=== PATIENT | male | born 1980 | race Caucasian/White ===

== ENCOUNTER 2016-12-20 15:58 | Inpatient (IN) | payer BC, OTHER ==
[~2016-12-20] VITALS: Ht 172.7 cm; Wt 86.2 kg
[2016-12-20] MEDS ORDERED: ACETAMINOPHEN 325 MG TABLET PO PRN (22:45)
[2016-12-20] MEDS ORDERED: DICYCLOMINE HCL 20 MG TABLET PO PRN (22:45)
[2016-12-20] MEDS ORDERED: MIRALAX 17 GM POWD.PACK PO PRN (22:45)
[2016-12-20] MEDS ORDERED: LORAZEPAM 2 MG/1 ML VIAL IM PRN (22:45)
[2016-12-20] MEDS ORDERED: LORAZEPAM 1 MG TABLET PO PRN ×2 (22:45)
[2016-12-20] MEDS ORDERED: MAGNESIUM HYDROXIDE 30 ML LIQUID UDC PO PRN (22:45)
[2016-12-20] MEDS ORDERED: THIAMINE HCL 200 MG/2 ML VIAL IM ONE (22:45)
[2016-12-20] MEDS ORDERED: ONDANSETRON 4 MG/2 ML VIAL IM PRN (22:45)
[2016-12-20] MEDS ORDERED: ONDANSETRON ODT 4 MG TAB.RAPDIS SL PRN (22:45)
[2016-12-20] MEDS ORDERED: MAG HYDROX/AL HYDROX/SIMETH 30 ML LIQUID UDC PO PRN (22:45)
[2016-12-20] MEDS ORDERED: IBUPROFEN 400 MG TABLET PO PRN (22:45)
[2016-12-20] MEDS ORDERED: LOPERAMIDE HCL 2 MG CAPSULE PO PRN ×2 (22:45)
--- NOTE | 2016-12-20 23:10 | NUR ---
Intake Assessment Assessment done at intake office. Patient is alert & oriented x4. Pt is ambulatory with a steady gait. Speech is clear and audible. Pt appears anxious and is cooperative during interviews. Vitals noted B/P 172/110, NE 118, RR 18, Temp 97.9, O2Sat 96%. Pt is here for Alcohol. Pt reported having white coat syndrome and gets anxious when he is in hospitals. Pt denies taking any home medication or hypertensive medication. No seizure history noted. Denies any chest pain at this time. No s/s of distress noted. Respiration even & unlabored. Pt denies any food and drug allergies. Explained to pt unit protocols. Pt verbalized understanding.
[2016-12-20 23:30] LABS: BASOPHILS % (AUTO) 0.5 % (0.0-2.0); EOSINOPHILS # (AUTO) 0.1 K/uL (0.0-0.7); EOSINOPHILS % (AUTO) 0.9 % (0.0-7.0); HEMATOCRIT 48.1 % (40-50); HEMOGLOBIN 16.2 G/DL (14.0-18.0); LYMPHOCYTES # (AUTO) 1.3 K/UL (0.8-4.8); LYMPHOCYTES % (AUTO) 20.9 % (20.5-51.5); MEAN CORPUSCULAR HEMOGLOBIN 32.3 UUG (27.0-31.0); MEAN CORPUSCULAR HGB CONC 34 g/dL (32.0-37.0); MEAN CORPUSCULAR VOLUME 95.8 FL (82.0-92.0); MONOCYTES # (AUTO) 0.4 K/UL (0.1-1.30); MONOCYTES % (AUTO) 6.2 % (0.0-11.0); NEUTROPHILS # (AUTO) 4.3 K/UL (1.8-8.9); NEUTROPHILS % (AUTO) 71.5 % (38.5-71.5); PLATELET COUNT (AUTO) 285 K/UL (150-450); RED BLOOD CELL COUNT(AUTO) 5.02 MIL/UL (4.7-6.1); WHITE BLOOD COUNT (AUTO) 6.1 K/UL (4.0-11.2)
--- NOTE | 2016-12-20 23:30 | NUR ---
ADMISSION NOTE: Patient is a 36 y.o male admitted at [facility] at approximately 2320pm of 12/20/16 for medically supervised withdrawal from ETOH. Body search done and skin check performed in Room 302, no contraband found. Rashes noted all over his back. Pictures taken and placed in chart. Pt is 5'8" tall and weighs 190 lbs in a standing scale. Pt is cooperative during assessment. Patient is oriented to floor unit and room. Patient follows a regular diet at home with no known food and drug allergies. Pt wishes to be full Code. Patient is alert & oriented x4, ambulatory with a steady gait. Speech is clear and audible. Patient appears anxious but cooperative during interview. No shortness of breath noted. Respiration even & unlabored. Abdomen soft & non-distended. Bowel sounds active in all four quadrants. No nausea/vomiting noted. No complaints of pain/discomfort noted. No hand tremors noted. Pt denies any chest pain. No hallucinations noted. CIWA 3 noted. Patient noted with past medical history of Anxiety, Depression, Pyloric Stenosis(1980), & White Coat Syndrome. Pt denies any thoughts of suicide in the past. Pt currently denies SI/HI. Pt was able to provide urine sample for drug screen upon admission and is voiding clear yellow urine with no problems. Substance use: 1. ETOH- Pt started drinking when he was 17 years old. Pt drinks 2 bottles of wine daily for 5 years. Last drink was 4 hours prior to admission. Pt drank 2 beers and 2 glasses of wine. Patient has no treatment history. Patient denies being hospitalized in the last 30 days. Patient reports his longest period of sobriety was for 2 weeks in 2013 Patient reports symptoms when he does not use insomnia, sweating, chills, anxiety, tremors, nausea, loss of appetite, & headache. Patient is never a smoker. Patient agreed to receive a pneumonia vaccine. Patient's PCP is Dr. Xavier Lee. Urine drug screen came back negative. Alcohol level is 0.27. Fall & Seizure precautions are in place. All needs attended & met. Safety precautions are in place. Bed locked in lowest position. Both side rails padded & up. Call light within pt's reach. Will continue to monitor patient.
[2016-12-20 23:48] LABS: BILIRUBIN,TOTAL 0.3 mg/dL (0.2-1.0); CREATININE 0.9 mg/dL (0.6-1.3); POTASSIUM 3.3 mmol/L (3.5-5.1); TOTAL PROTEIN, SERUM 8.9 g/dL (6.4-8.2)
[2016-12-20] MEDS: diphenhydrAMINE 50 MG CAPSULE PO PRN (23:51)
--- NOTE | 2016-12-20 23:51 | NUR ---
PRN Benadryl Patient requested medication to help him sleep. PRN Benadryl administered as ordered. Will continue to monitor patient.
[2016-12-20 23:53] LABS: *AMPHETAMINE, URINE NEGATIVE (NEGATIVE); *BARBITURATE, URINE NEGATIVE (NEGATIVE); *CANNABINOID, URINE NEGATIVE (NEGATIVE); *COCCAINE, URINE NEGATIVE (NEGATIVE); *OPIATE, URINE NEGATIVE (NEGATIVE); *PHENCYCLIDINE SCREEN,URINE NEGATIVE (NEGATIVE)
[2016-12-20 23:58] LABS: THYROID STIMULATING HORMONE 1.49 mIU/mL (0.358-3.740)
[2016-12-20] MEDS ORDERED: THIAMINE HCL 200 MG/2 ML VIAL ONE (23:58)
[2016-12-20] MEDS ORDERED: diphenhydrAMINE 50 MG CAPSULE ONE (23:58)
[2016-12-21] MEDS ORDERED: POTASSIUM CHLORIDE 20 MEQ TAB.PRT.SR PO ONE (00:30)
[2016-12-21] MEDS: CLONIDINE HCL 0.1 MG TABLET PO PRN ×2 (00:32→12:40)
--- NOTE | 2016-12-21 00:32 | NUR ---
PRN Clonidine Patient noted with a BP 138/107, HR 110, O2Sat 97%, RR 20, Temp 98.6. Patient complains of anxiety and denies any pain/discomfort. PRN Clonidine administered as ordered. Will continue to monitor patient.
[2016-12-21] MEDS ORDERED: CLONIDINE HCL 0.1 MG TABLET ONE (00:38)
[2016-12-21] MEDS ORDERED: POTASSIUM CHLORIDE 20 MEQ TAB.PRT.SR ONE (00:43)
[2016-12-21] MEDS ORDERED: PHEN1SUP42 RC (01:37)
[2016-12-21] MEDS ORDERED: TRIA80OI TP (01:37)
[2016-12-21] MEDS ORDERED: [UNRECOGNIZED DRUG - CODE] PO (01:37)
[2016-12-21] MEDS ORDERED: MELA3TAB PO (01:37)
[2016-12-21] MEDS ORDERED: D-ME-96 PO (01:37)
[2016-12-21] MEDS ORDERED: SIMETHICONE (01:37)
[2016-12-21] MEDS ORDERED: [UNRECOGNIZED DRUG - OTHER] (01:37)
[2016-12-21 04:00] VITALS: BP 137/91
--- NOTE | 2016-12-21 07:31 | NUR ---
End of Shift Note: Patient is a 36 y/o male admitted last night at 2320 of 12/20/16 for ETOH dependence. Patient has medical history of Anxiety, Depression, Pyloric Stenosis(1980), & White Coat Syndrome. No seizure history noted. Patient is on a regular diet with no known food and drug allergies. Full Code status. Initial CIWA is 3. Pt was given PRN Benadryl and Clonidine and were effective. Patient remained stable and vitals WNL. Pt still asleep at this time with no s/s of distress noted. Pt was able to sleep for a total of 5 hours. Consumed 1500 ml of fluids. Voided 1x with no bowel movement. All needs attended met. Safety measures in place. Will endorse pt to day shift nurse.
--- NOTE | 2016-12-21 07:59 | NUR ---
START OF SHIFT Rcvd endorsement from ongoing nurse, client is a 36 y/o admitted for alcohol withdrawal, this is his first detox treatment, he is placed on 5 day Ativan taper to start @ 0900, last CIWA 3 @ 2400. PRN Benadryl for inability to sleep, Clonidine for increased BP, noted effective, client slept 5 hrs. Client is in bed, a/o x4. he presents with depressed mood, he stated "I feel very really bad, sweating, chills, my legs hurt." Client appears irritable, skin warm and moist to touch, abdomen soft, nontender, quadrant x 4 active. Encourage client to increase fluid intake to facilitate detox and to attend group therapy for skills to maintain sobriety. Denied history of withdrawal induced seizures. Client is on seizure precautions. NKA, full code, regular diet. Call light within reach. Side rails x 2 up/padded. Will continue to monitor.
[2016-12-21] MEDS: LORAZEPAM 1 MG TABLET PO SCH ×4 (08:20→20:54)
[2016-12-21] MEDS: THIAMINE HCL 100 MG TABLET PO SCH (08:20)
[2016-12-21] MEDS: FOLIC ACID 1 MG TABLET PO SCH (08:20)
[2016-12-21] MEDS: MULTIVITAMINS,THERAPEUTIC TABLET PO SCH (08:20)
--- NOTE | 2016-12-21 08:20 | NUR ---
TB test administered to L F/A, client tolerated well.
[2016-12-21 08:53] VITALS: BP 152/102
[2016-12-21] MEDS ORDERED: TUBERCULIN,PURIF.PROT.DERIV. 5 TU/0.1 ML TEST ID ONE (09:00)
--- NOTE | 2016-12-21 12:40 | NUR ---
PRN Clonidine 0.1mg Client presents with anxious mood, manifested by increased BP 145/101 Clonidine 0.1mg PO administered, will continue to monitor.
[2016-12-21 12:55] VITALS: BP 145/101
--- NOTE | 2016-12-21 13:40 | NUR ---
Reassessment PRN Clonidine 0.1mg Client appears less anxious, BP 135/90 Clonidine 0.1mg effective. will continue to monitor.
[2016-12-21 16:00] VITALS: BP 126/86
--- NOTE | 2016-12-21 18:27 | NUR ---
END OF SHIFT Will endorse client to incoming nurse, client is in bed, a/o x 4, depressed mood, flat affect, flushed face, moist skin, fine tremors, lost of appetite, increased BP, and fatigue are some of withdrawal symptoms experienced by the client and managed with Ativan taper (first of 5 day), tolerating well, last COWS 8 @ 1600. Client is fully ambulatory. PRN Clonidine 0.1mg for BP 145/101, effective 135/90. Client was not compliant intake 2130mL, void x 3. Call light within reach. Safety measures rendered and all needs met.
--- NOTE | 2016-12-21 19:15 | NUR ---
Start of Shift Note: Patient is a 36 y/o male admitted last night at 2320 of 12/20/16 for ETOH dependence. Patient has medical history of Anxiety, Depression, Pyloric Stenosis(1980), & White Coat Syndrome. No seizure history noted. Patient is on a regular diet with no known food and drug allergies. Full Code status. Patient started on a 5-day Ativan taper and tolerating well. Last CIWA is 8. Pt was given PRN Clonidine during day shift. Patient is alert & oriented x4. No shortness of breath noted. Respiration even & unlabored. Abdomen soft & non-distended. No nausea/vomiting noted. Patient denies pain/discomfort. Patient complains of anxiety. No hallucinations noted. Safety precautions are in place. Bed locked in lowest position. Both side rails up. Call light within pts reach. Will continue to monitor patient.
[2016-12-21 20:00] VITALS: BP 131/93
[2016-12-21] MEDS: diphenhydrAMINE 50 MG CAPSULE PO PRN (20:54)
--- NOTE | 2016-12-21 20:54 | NUR ---
PRN Benadryl Patient requested medication for sleep. PRN Benadryl administered as ordered. Will continue to monitor patient.
--- NOTE | 2016-12-21 22:00 | NUR ---
PRN Reassessment Patient asleep in bed and appears comfortable. No s/s of distress noted. Safety measures in place. Will continue to monitor patient.
[2016-12-22] VITALS: BP 142/96
[2016-12-22 04:00] VITALS: BP 135/93
--- NOTE | 2016-12-22 06:48 | NUR ---
End of Shift Note: Patient had an uneventful night. Pt continues on his Ativan taper and tolerating well. Pt reported taper medication is effective in controlling his withdrawal symptoms. Last CIWA is 4. PRN Benadryl given to patient for sleep. Pt remained stable and vitals remains WNL. Pt remains compliant with medications and treatment plan. Pt still asleep at this time with no s/s of distress noted. Pt was able to sleep for a total of 6 hours. Consumed 1000 ml of fluids. Voided 3x with 1x bowel movement. All needs attended met. Safety measures in place. Will endorse pt to day shift nurse.
--- NOTE | 2016-12-22 07:30 | NUR ---
START OF SHIFT Rcvd endorsement from ongoing nurse, 36 y/o admitted for alcohol withdrawal, he is on 5 day Ativan taper (2nd day) with no ASE, last CIWA 4 @ 2400. PRN Benadryl for inability to sleep, noted effective, client slept 6 hrs. Client is in bed, a/o x4. he presents with anxious mood, flat affect, he stated "I had the worst night, I had nightmares and they were too real." Client noted with fine tremors, diaphoretic, flushed face, he reports stomach cramps, lost of appetite and fatigue. Abdomen soft, nontender, quadrant x 4 active. Encourage client to increase fluid intake to facilitate detox and to attend group therapy for skills to maintain sobriety. Denied history of withdrawal induced seizures. Client is on seizure precautions. NKA, full code, regular diet. Call light within reach. Side rails x 2 up/padded. Will continue to monitor.
[2016-12-22] MEDS: THIAMINE HCL 100 MG TABLET PO SCH (08:12)
[2016-12-22] MEDS: MULTIVITAMINS,THERAPEUTIC TABLET PO SCH (08:12)
[2016-12-22] MEDS: CLONIDINE HCL 0.1 MG TABLET PO PRN (08:12)
[2016-12-22] MEDS: FOLIC ACID 1 MG TABLET PO SCH (08:12)
[2016-12-22] MEDS: LORAZEPAM 1 MG TABLET PO SCH ×3 (08:12→21:14)
--- NOTE | 2016-12-22 08:12 | NUR ---
PRN Clonidine 0.1mg Client with increased BP 139/107 Clonidine 0.1mg PO administered, will continue to monitor. Call light within reach.
[2016-12-22 08:15] VITALS: BP 139/107
[2016-12-22 09:03] LABS: BILIRUBIN,DIRECT 0.2 mg/dL (0.0-0.2); BILIRUBIN,TOTAL 0.6 mg/dL (0.2-1.0); CREATININE 0.8 mg/dL (0.6-1.3); POTASSIUM 3.9 mmol/L (3.5-5.1); TOTAL PROTEIN, SERUM 6.9 g/dL (6.4-8.2)
--- NOTE | 2016-12-22 09:12 | NUR ---
Reassessment PRN Clonidine 0.1mg Client in bed, sound asleep, BP 130/88 Clonidine 0.1mg effective. will continue to monitor.
[2016-12-22] MEDS: AMLODIPINE 5 MG TABLET PO SCH (12:33)
[2016-12-22 12:34] VITALS: BP 130/96
[2016-12-22] MEDS: GABAPENTIN 300 MG CAPSULE PO SCH ×2 (14:21→21:13)
--- NOTE | 2016-12-22 14:21 | NUR ---
Therapist prompted client to attend daily group therapy sessions. Client stated that he would try to attend.
[2016-12-22 16:55] VITALS: BP 129/97
[2016-12-22 17:55] LABS: HEPATITIS B SURFACE AG Negative (Negative)
--- NOTE | 2016-12-22 18:27 | NUR ---
END OF SHIFT Will endorse client to incoming nurse, client is in bed, a/o x 4, anxious mood, flat affect, flushed face, moist skin, restless legs, fine tremors, decreased appetite, and fatigue are some of withdrawal symptoms experienced by the client and managed with Ativan taper (day 2nd of 5), tolerating well, last CIWA 7 @ 1600. Client is fully ambulatory. PRN Clonidine 0.1mg for BP 139/107, effective 130/88. Client was not compliant with group therapy. Adequate PO intake 3659mL, void x 4. stool x 2. Call light within reach. Safety measures rendered and all needs met.
--- NOTE | 2016-12-22 19:30 | NUR ---
START OF SHIFT Pt is 36 y/o male,admitted for ETOH dependency.he is on 5 day Ativan taper,tolerating well.. Pt is fully ambulatory. A/O X 4,on regular diet,full code status,NKA.PO fluids encouraged as tolerated.Pt is on fall and seizure precautions,no hx of seizures noted.Pt received in stable condition.All safety measures in place,call light within reach,will continue to monitor.
[2016-12-22 20:00] VITALS: BP 135/103
[2016-12-23] VITALS: BP 117/80
[2016-12-23 04:00] VITALS: BP 122/86
--- NOTE | 2016-12-23 06:34 | NUR ---
END OF SHIFT Pt is 36 y/o male,admitted for ETOH dependency.he is on 5 day Ativan taper,tolerating well.. Pt is fully ambulatory. A/O X 4,on regular diet,full code status,NKA.PO fluids encouraged as tolerated.Pt is on fall and seizure precautions,no hx of seizures noted.Last CIWA=2.No PRN meds given last night;pt slept 7 hrs,fluid intake was 1069 mls,voided x 2 .All safety measures in place. Bed locked in lowest position. Both side rails up. Call light within pt's reach. Will continue to monitor patient.
--- NOTE | 2016-12-23 07:39 | NUR ---
START OF SHIFT Rcvd endorsement from ongoing nurse, 36 y/o admitted for alcohol withdrawal, he is on 5 day Ativan taper (3rd day) with no ASE, last CIWA 2 @ 0400. He had an uneventful night, slept 7 hrs. Client is in bed, a/o x4. he presents with depressed mood, flat affect, he reports restless legs, abdominal cramps, decreased appetite, and fatigue, he denies any N/V/D, he denies any SI/HI. Client with moist skin, tremors felt not seen, flushed face, abdomen soft, nontender, quadrant x 4 active. Encourage client to increase fluid intake to facilitate detox and to attend group therapy for skills to maintain sobriety, he stated "I will try to go to therapy today." Denied history of withdrawal induced seizures. Client is on seizure precautions. NKA, full code, regular diet. Call light within reach. Side rails x 2 up/padded. Will continue to monitor.
[2016-12-23 08:00] VITALS: BP 142/89
--- NOTE | 2016-12-23 08:20 | NUR ---
Zero induration noted @ TB test administered to L F/A.
[2016-12-23] MEDS: THIAMINE HCL 100 MG TABLET PO SCH (08:40)
[2016-12-23] MEDS: FOLIC ACID 1 MG TABLET PO SCH (08:40)
[2016-12-23] MEDS: MULTIVITAMINS,THERAPEUTIC TABLET PO SCH (08:40)
[2016-12-23] MEDS: LORAZEPAM 1 MG TABLET PO SCH ×4 (08:41→20:26)
[2016-12-23] MEDS: AMLODIPINE 5 MG TABLET PO SCH (08:41)
[2016-12-23] MEDS: GABAPENTIN 300 MG CAPSULE PO SCH ×3 (08:41→20:26)
[2016-12-23 12:55] VITALS: BP 126/87
[2016-12-23 16:55] VITALS: BP 135/98
--- NOTE | 2016-12-23 18:48 | NUR ---
END OF SHIFT Will endorse client to incoming nurse, client is in bed, a/o x 4, he continues to present with depressed mood, flat affect, flushed face, moist skin, restless legs, tremors felt not observed, decreased appetite, and fatigue. Ativan taper (3rd of 5 day) minimizing withdrawal symptoms, with no ASE, last CIWA 7 @ 1600. Client is fully ambulatory. Norvasc 5mg daily is effective in maintaining blood pressure WNL Client was not compliant with group therapy. Adequate PO intake 2388mL, void x 3. stool x 2. Call light within reach. Safety measures rendered and all needs met.
[2016-12-23 20:00] VITALS: BP 145/68
--- NOTE | 2016-12-23 20:00 | NUR ---
START OF SHIFT NOTE RECEIVED REPORT FROM DAY SHIFT NURSE. PATIENT IS 36 YEAR OLD MALE, ADMITTED FOR ETOH DEPENDENCE. PATIENT IS ON 3RD DAY OF HIS 5 DAY ATIVAN TAPER. PER DAY SHIFT NURSE, PATIENT STAYS IN ROOM MOST OF THE TIME, DID NOT ATTEND ANY GROUPS. PATIENT WITHDRAWN. NEW ORDER OF NORVASC FOR ELEVATED BLOOD PRESSURE. PATIENT DID NOT REQUIRE ANY PRN MEDICATION DURING THE DAY. LAST CIWA 7. PATIENT IN ROOM, ALERT AND ORIENTED X 4. RESPIRATION EVEN AND UNLABORED. PATIENT STATES HE'S ANXIOUS, NO N/V, WILL TRY TO ATTEND GROUPS TOMORROW, APPETITE IS GETTING BETTER. DENIES ANY PAIN AT THIS TIME. SAFETY MEASURES IN PLACE. CALL LIGHT IN REACH. WILL CONTINUE TO MONITOR.
[2016-12-23] MEDS: diphenhydrAMINE 50 MG CAPSULE PO PRN (21:36)
--- NOTE | 2016-12-23 21:36 | NUR ---
PRN BENADRYL ADMINISTRATION PATIENT REQUESTS FOR SLEEP AID. PRN BENADRYL GIVEN. WILL MONITOR FOR EFFECTIVENESS
--- NOTE | 2016-12-23 23:00 | NUR ---
KENYETTA TILLMAN RE-ASSESSMENT PATIENT ASLEEP AT THIS TIME. RESPIRATION EVEN AND UNLABORED. SAFETY MEASURES IN PLACE. CALL LIGHT IN REACH. WILL CONTINUE TO MONITOR
[2016-12-24] VITALS: BP 127/87
--- NOTE | 2016-12-24 04:00 | NUR ---
CIWA/VS PATIENT ASLEEP. CIWA UNABLE TO ASSESS. RESPIRATION EVEN AND UNLABORED. RR 15. SAFETY MEASURES IN PLACE. CALL LIGHT IN REACH. WILL CONTINUE TO MONITOR.
--- NOTE | 2016-12-24 07:14 | NUR ---
END OF SHIFT NOTE MONITORED PATIENT THROUGHOUT SHIFT. PATIENT REMAIN STABLE. PATIENT IS ON 3RD DAY OF HIS 5 DAY ATIVAN TAPER, TOLERATED WELL WITH NO ADVERSE REACTION. PATIENT STAYS IN ROOM MOST OF THE TIME, DID NOT ATTEND ANY GROUPS. PATIENT ENCOURAGED. PATIENT COMPLIANT WITH MEDICATION. PATIENT WAS GIVEN PRN BENADRYL AT 2136. SAFETY MEASURES IN PLACE. CALL LIGHT IN REACH. WILL CONTINUE TO MONITOR. SLEPT 7 HOURS. FLUID INTAKE 1,065 ML. VOIDED X 3 . NO BM. LAST CIWA 2.
--- NOTE | 2016-12-24 07:59 | NUR ---
START OF SHIFT Rcvd endorsement from ongoing nurse, 36 y/o admitted for alcohol withdrawal, he is on 5 day Ativan taper (4rd day) with no ASE, last CIWA 2 @ 2400. PRN Benadryl for inability to sleep, he slept 7hrs. Client is in bed, a/o x4. he presents with depressed mood, flat affect, noted with flushed face, moist skin, tremors felt not observed, client reports restless legs, abdominal cramps, and fatigue, he denies N/V/D, he denies any SI/HI. Client stated "I had dreams last night and they were quite real, I was nervous when I awoke." Client with abdomen soft, nontender, quadrant x 4 active. Encourage client to increase fluid intake to facilitate detox and to attend group therapy for skills to maintain sobriety. Denied history of withdrawal induced seizures. Client is on seizure precautions. NKA, full code, regular diet. Call light within reach. Side rails x 2 up/padded. Will continue to monitor.
[2016-12-24 08:29] VITALS: BP 129/88
--- NOTE | 2016-12-24 09:10 | NUR ---
Dr. Lucio notified of client's vivid dreams, he stated, "This is a usual aspect when withdrawing from alcohol, if the client had difficulty sleeping, I will order some sleeping aid medication, but first I need to see the patient."
[2016-12-24] MEDS: LORAZEPAM 1 MG TABLET PO SCH ×3 (09:14→20:44)
[2016-12-24] MEDS: MULTIVITAMINS,THERAPEUTIC TABLET PO SCH (09:14)
[2016-12-24] MEDS: FOLIC ACID 1 MG TABLET PO SCH (09:14)
[2016-12-24] MEDS: THIAMINE HCL 100 MG TABLET PO SCH (09:14)
[2016-12-24] MEDS: GABAPENTIN 300 MG CAPSULE PO SCH ×3 (09:14→20:43)
[2016-12-24] MEDS: AMLODIPINE 5 MG TABLET PO SCH (09:15)
--- NOTE | 2016-12-24 11:36 | NUR ---
Client refused PNA vaccine, stating "I don't really need it, I'm usually at home by myself." Risk/benefits discuss, but he still refused the vaccine.
[2016-12-24 13:06] VITALS: BP 153/104
[2016-12-24] MEDS: CLONIDINE HCL 0.1 MG TABLET PO PRN (13:08)
--- NOTE | 2016-12-24 13:08 | NUR ---
PRN Clonidine 0.1mg Client with increased BP 153/104, HR 102 Clonidine 0.1mg PO administered, will continue to monitor. Call light within reach.
--- NOTE | 2016-12-24 14:08 | NUR ---
Reassessment PRN Clonidine 0.1mg BP 135/86, HR 90 Clonidine 0.1mg PO effective. Call light within reach.
[2016-12-24 16:55] VITALS: BP 127/93
--- NOTE | 2016-12-24 18:30 | NUR ---
END OF SHIFT Will endorsed client to incoming nurse, client continues on 4 of 5 day Ativan taper, tolerating well with no ASE. PRN Clonidine 0.1mg for increased BP 153/104, effective. Last CIWA 5 @ 1600. Client continues to present with depressed mood, flat affect, he reports stomach cramps, fatigue and restless legs. Client was compliant with 1/3 group therapy. TB test noted with zero induration on L forearm. Adequate PO intake 1796L, void x 4. stool x 2. Call light within reach. Safety measures rendered and all needs met.
[2016-12-24 20:00] VITALS: BP 134/95
--- NOTE | 2016-12-24 20:00 | NUR ---
START OF SHIFT NOTE RECEIVED REPORT FROM DAY SHIFT NURSE. PATIENT CONTINUE ON ATIVAN TAPER, TOLERATED WELL, NO ADVERSE REACTION FOR ETOH DEPENDENCE. PATIENT'S DRUG OF CHOICE ARE HEROIN IV, METH IV, XANAX PO AND MARIJUANA. PATIENT REMAIN STABLE. PRN CLONIDINE GIVEN. LAST CIWA 5. PATIENT IN HIS ROOM, ALERT AND ORIENTED. RESPIRATION EVEN AND UNLABORED. PATIENT ANXIOUS BUT STATES HE FEELS MUCH BETTER, NO SWEATING. NO N/V. MEDICATIONS ARE EFFECTIVE IN CONTROLLING HIS WITHDRAWAL SYMPTOMS. DENIES ANY PAIN AT THIS TIME. PATIENT STATES HE WENT TO TWO GROUPS TODAY. APPETITE IS GOOD AND DRINKING FLUIDS WELL. ON FALL/SEIZURE PRECAUTION. SAFETY MEASURES IN PLACE. CALL LIGHT IN REACH. WILL CONTINUE TO MONITOR.
[2016-12-24] MEDS: CLONIDINE HCL 0.1 MG TABLET PO SCH (20:44)
[2016-12-24] MEDS: diphenhydrAMINE 50 MG CAPSULE PO PRN (21:46)
--- NOTE | 2016-12-24 21:46 | NUR ---
PRN BENADRYL ADMINISTRATION PATIENT REQUESTS FOR SLEEP AID. PRN BENADRYL GIVEN. WILL MONITOR FOR EFFECTIVENESS
--- NOTE | 2016-12-24 23:00 | NUR ---
KENYETTA TILLMAN RE-ASSESSMENT PATIENT ASLEEP AT THIS TIME. WILL CONTINUE TO MONITOR
--- NOTE | 2016-12-25 | NUR ---
CIWA/VS PATIENT ASLEEP. CIWA UNABLE TO ASSESS. RESPIRATION EVEN AND UNLABORED. RR 15. NO S/S OF DISTRESS. SAFETY MEASURES IN PLACE. CALL LIGHT IN REACH. WILL CONTINUE TO MONITOR.
--- NOTE | 2016-12-25 07:09 | NUR ---
END OF SHIFT NOTE MONITORED PATIENT THROUGHOUT SHIFT. PATIENT CONTINUE ON ATIVAN TAPER, TOLERATED WELL, NO ADVERSE REACTION FOR ETOH DEPENDENCE. PATIENT'S DRUG OF CHOICE ARE HEROIN IV, METH IV, XANAX PO AND MARIJUANA. PATIENT REMAIN ALERT AND ORIENTED. RESPIRATION EVEN AND UNLABORED. PATIENT EATING AND DRINKING FLUIDS WELL. PATIENT COMPLIANT WITH MEDICATIONS AND TREATMENT PLAN. PATIENT ATTENDED GROUPS , CONTINUE TO ENCOURAGE. PATIENT WAS GIVEN PRN BENADRYL AT 2146. PATIENT REMAIN FREE OF INJURY. ON FALL/SEIZURE PRECAUTION. SAFETY MEASURES IN PLACE. CALL LIGHT IN REACH. WILL CONTINUE TO MONITOR.SLEPT 8 HOURS. FLUID INTAKE 900 ML. VOIDED X 2 . BM X 1. LAST CIWA 4.
--- NOTE | 2016-12-25 07:30 | NUR ---
START OF SHIFT NOTE Received report from night nurse, 36 year old male admitted for ETOH dependence. Patient has medical history of Anxiety, Depression, Pyloric Stenosis(1980), & White Coat Syndrome. No seizure history reported by pt. Pt cont with 5-day Ativan taper and tolerating well. Last CIWA is 4, slept for 8 hours. Pt was given PRN Benadryl during night nurse shift. Upon assessment pt is alert & oriented x4. No shortness of breath noted. Respiration even & unlabored. Abdomen soft & non-distended. No nausea/vomiting noted. Patient denies pain/discomfort. Pt educated with plan of care and medication regimen with good verbal understanding. Safety measures in place, Call light within reach. Will cont to monitor.
[2016-12-25 08:00] VITALS: BP 115/87
[2016-12-25] MEDS: GABAPENTIN 300 MG CAPSULE PO SCH ×3 (09:17→20:29)
[2016-12-25] MEDS: THIAMINE HCL 100 MG TABLET PO SCH (09:17)
[2016-12-25] MEDS: LORAZEPAM 1 MG TABLET PO SCH ×2 (09:17→20:29)
[2016-12-25] MEDS: FOLIC ACID 1 MG TABLET PO SCH (09:17)
[2016-12-25] MEDS: AMLODIPINE 5 MG TABLET PO SCH (09:17)
[2016-12-25] MEDS: MULTIVITAMINS,THERAPEUTIC TABLET PO SCH (09:18)
[2016-12-25] MEDS: CLONIDINE HCL 0.1 MG TABLET PO SCH ×2 (09:18→20:30)
[2016-12-25 12:00] VITALS: BP 114/79
[2016-12-25 16:00] VITALS: BP 125/88
--- NOTE | 2016-12-25 19:14 | NUR ---
END OF SHIFT NOTE Pt cont with 5 days Ativan taper tolerating well. pt attended groups and activities. Patient encouraged adequate Po fluid intake as tolerated. During shift pt did not receive any PRN, Last CIWA-4. Vital signs remained stable. Pt remained compliant with care and medications. During shift pt was seen by MD Garcia, and Psychiatrist. Safety measures in place, Call light within reach. Pt endorsed to night nurse in stable condition.
[2016-12-25 20:00] VITALS: BP 140/89
--- NOTE | 2016-12-25 20:00 | NUR ---
START OF SHIFT NOTE UPON GREETING, PATIENT STATES HES ANXIOUS BUT ALRIGHT. NO N/V. MEDICATION ARE EFFECTIVE IN CONTROLLING HIS WITHDRAWAL SYMPTOMS. PATIENT ALERT AND ORIENTED X 4. RESPIRATION EVEN AND UNLABORED. DENIES ANY PAIN. PATIENT STATES HE ATTENDED ALL GROUPS. RECEIVED REPORT FROM DAY SHIFT NURSE. PATIENT IS A 36 YEAR OLD MALE, ADMITTED FOR ETOH DEPENDENCE. PATIENT IS ON 5TH DAY OF HIS 5 DAY ATIVAN TAPER, TOLERATED WELL, NO ADVERSE REACTION. PATIENT COMPLIANT WITH MEDICATIONS AND TREATMENT PLAN. PATIENT REMAIN STABLE. PATIENT DID NOT REQUIRE ANY PRN MEDICATION. LAST CIWA 4. ON FALL/SEIZURE PRECAUTION. SAFETY MEASURES IN PLACE. CALL LIGHT IN REACH. WILL CONTINUE TO MONITOR.
[2016-12-25] MEDS: diphenhydrAMINE 50 MG CAPSULE PO PRN (21:34)
--- NOTE | 2016-12-25 21:34 | NUR ---
PRN BENADRYL RE-ASSESSMENT PATIENT REQUESTS FOR SLEEP AID. PRN BENADRYL GIVEN. WILL MONITOR FOR EFFECTIVENESS
--- NOTE | 2016-12-25 23:30 | NUR ---
PRN BENADRYL RE-ASSESSMENT PATIENT IN BED WITH EYES CLOSED. WILL CONTINUE TO MONITOR.
--- NOTE | 2016-12-26 | NUR ---
CIWA/VS PATIENT ASLEEP. CIWA UNABLE TO ASSESS. RESPIRATION EVEN AND UNLABORED. NO S/S OF DISTRESS. SAFETY MEASURES IN PLACE. CALL LIGHT IN REACH.WILL CONTINUE TO MONITOR.
[2016-12-26 04:00] VITALS: BP 130/95
--- NOTE | 2016-12-26 04:10 | NUR ---
PRN VISTARIL ADMINISTRATION PATIENT C/O ANXIETY. PRN VISTARIL GIVEN. WILL MONITOR FOR EFFECTIVENESS
[2016-12-26] MEDS ORDERED: HYDROXYZINE PAMOATE 25 MG CAPSULE PO PRN (04:15)
[2016-12-26] MEDS ORDERED: HYDROXYZINE PAMOATE 25 MG CAPSULE ONE (04:17)
--- NOTE | 2016-12-26 05:10 | NUR ---
PRN VISTARIL RE-ASSESSMENT PATIENT ASLEEP AT THIS TIME. NO S/S OF DISTRESS. WILL CONTINUE TO MONITOR.
--- NOTE | 2016-12-26 07:06 | NUR ---
END OF SHIFT NOTE MONITORED PATIENT THROUGHOUT SHIFT. PATIENT REPORTED ANXIETY BUT STATES HES ALRIGHT, NO N/V BEGINNING OF SHIFT. HE STATES THAT MEDICATIONS ARE EFFECTIVE IN CONTROLLING HIS WITHDRAWAL SYMPTOMS. PATIENT REMAIN ALERT AND ORIENTED X 4. RESPIRATION EVEN AND UNLABORED. DENIES ANY PAIN. PATIENT STATES HE ATTENDED ALL GROUPS. PATIENT CONTINUE ON IS ON 5 DAY ATIVAN TAPER, TOLERATED WELL, NO ADVERSE REACTION. PATIENT COMPLIANT WITH MEDICATIONS AND TREATMENT PLAN. PATIENT DID NOT WAS GIVEN BENADRYL AT 2134. AT 0410, PATIENT C/O ANXIETY , NEW PRN VISTARIL ORDER GIVEN . ON FALL/SEIZURE PRECAUTION. SAFETY MEASURES IN PLACE. CALL LIGHT IN REACH. WILL CONTINUE TO MONITOR. SLEPT 7 HOURS. FLUID INTAKE 1,750 ML. VOIDED X 3. NO BM. LAST CIWA 1 .
--- NOTE | 2016-12-26 07:49 | NUR ---
START OF SHIFT NOTE Received report from night nurse, 36 year old male admitted for ETOH dependence. Patient has medical history of Anxiety, Depression, Pyloric Stenosis(1980), & White Coat Syndrome. No seizure history reported by pt. Pt cont with 5-day Ativan taper and tolerating well. Last CIWA is 1, slept for 7 hours. Pt was given PRN Benadryl during night nurse shift. Upon assessment pt is alert & oriented x4. No shortness of breath noted. Respiration even & unlabored. Abdomen soft & non-distended. No nausea/vomiting noted. Patient denies pain/discomfort. Pt educated with plan of care and medication regimen with good verbal understanding. Safety measures in place, Call light within reach. Will cont to monitor.
[2016-12-26 08:00] VITALS: BP 150/99
[2016-12-26] MEDS: CLONIDINE HCL 0.1 MG TABLET PO SCH ×2 (08:10→21:35)
[2016-12-26] MEDS: AMLODIPINE 5 MG TABLET PO SCH (08:10)
[2016-12-26] MEDS: MULTIVITAMINS,THERAPEUTIC TABLET PO SCH (08:10)
[2016-12-26] MEDS: THIAMINE HCL 100 MG TABLET PO SCH (08:10)
[2016-12-26] MEDS: FOLIC ACID 1 MG TABLET PO SCH (08:10)
[2016-12-26] MEDS: GABAPENTIN 300 MG CAPSULE PO SCH ×3 (08:10→21:35)
[2016-12-26] MEDS ORDERED: TRAZODONE 50 MG TABLET PO PRN (09:00)
[2016-12-26 12:00] VITALS: BP 106/75
[2016-12-26] MEDS ORDERED: TRAZ-144 PO (12:01)
[2016-12-26] MEDS ORDERED: CLON0.1T14 PO (12:01)
[2016-12-26] MEDS ORDERED: AMLO5TAB2 PO (12:01)
[2016-12-26] MEDS ORDERED: GABA-534 PO ×2 (12:01)
[2016-12-26] MEDS ORDERED: HYDR-3895 PO (12:01)
[2016-12-26 14:48] LABS: *AMPHETAMINE, URINE NEGATIVE (NEGATIVE); *BARBITURATE, URINE NEGATIVE (NEGATIVE); *CANNABINOID, URINE NEGATIVE (NEGATIVE); *COCCAINE, URINE NEGATIVE (NEGATIVE); *OPIATE, URINE NEGATIVE (NEGATIVE); *PHENCYCLIDINE SCREEN,URINE NEGATIVE (NEGATIVE)
[2016-12-26 16:00] VITALS: BP 127/89
--- NOTE | 2016-12-26 19:09 | NUR ---
END OF SHIFT NOTE Pt completed his 5 days Ativan taper tolerated well. pt attended groups and activities. Patient encouraged adequate Po fluid intake as tolerated. During shift pt did not receive any PRN, Last CIWA-1. Vital signs remained stable. Pt remained compliant with care and medications. During shift pt was seen by MD Garcia, and Psychiatrist. Pt scheduled for discharge in am urine drug screen completed and placed in the chart. Safety measures in place, Call light within reach. Pt endorsed to night nurse in stable condition.
[2016-12-26 20:00] VITALS: BP 131/89
--- NOTE | 2016-12-26 20:00 | NUR ---
Start of Shift Patient is a 36-year old, male, admitted for ETOH dependence. Patient has medical history of Anxiety, Depression, Pyloric Stenosis (1980), & White Coat Syndrome. No seizure history reported by pt. Pt placed on a 5-day Ativan taper and was finished 12/25/2016. No adverse side effects noted. Pt is AAOx4, no SOB noted at this time. Pt observed to have mild anxiety. Pt verbalized: "I'm just a little anxious because I'm getting discharged tomorrow." Pt is ambulatory with steady gait and with no skin issues. Fall, universal, seizure and safety prec in place. Call light within reach. Latest CIWA=2. Will continue to monitor.
--- NOTE | 2016-12-26 21:36 | NUR ---
RN note PRN Trazodone Pt c/o inability to sleep. Administered Trazodone 50 mg PO as ordered. Will reassess.
--- NOTE | 2016-12-26 22:35 | NUR ---
RN note reassess Pt asleep on bed, no SOB nor facial grimacing noted. Trazodone is effective.
[2016-12-27] VITALS: BP 124/78
[2016-12-27 04:00] VITALS: BP 115/75
--- NOTE | 2016-12-27 07:25 | NUR ---
End of Shift Patient is a 36-year old, male, admitted for ETOH dependence. Patient has medical history of Anxiety, Depression, Pyloric Stenosis (1980), & White Coat Syndrome. No seizure history reported by pt. Pt placed on a 5-day Ativan taper and was finished 12/25/2016. No adverse side effects noted. Pt is AAOx4, no SOB noted at this time. Pt with no anxiety observed. Per pt verbalization, "I'm ready for my discharge today." Pt is ambulatory with steady gait and with no skin issues. Fall, universal, seizure and safety prec in place. Call light within reach. Latest CIWA=1, slept for 7 hours. Endorsed to AM shift nurse for continuity of care.
--- NOTE | 2016-12-27 07:40 | NUR ---
START OF SHIFT Received report from proof plate maker nurse. 36 year old male patient admitted for ETOH dependence. Pt has completed 5 day Ativan and is medically cleared for discharge. Pt remains compliant with MD orders and treatment plan. Hx of anxiety, depression, white cord syndrome, pyloric stenosis and anal abscess. Remain seizure free throughout hospitalization. PRN Trazodone was administered at night and effective, pt slept for 7 hours. V/S remain WNL. Most recent CIWA is 1. All needs met at this time. Will continue to monitor.
[2016-12-27 08:15] VITALS: BP 135/89
[2016-12-27] MEDS: GABAPENTIN 300 MG CAPSULE PO SCH (08:39)
[2016-12-27] MEDS: MULTIVITAMINS,THERAPEUTIC TABLET PO SCH (08:39)
[2016-12-27 08:40] VITALS: BP 138/91
[2016-12-27] MEDS: CLONIDINE HCL 0.1 MG TABLET PO SCH (08:40)
[2016-12-27] MEDS: AMLODIPINE 5 MG TABLET PO SCH (08:40)
[2016-12-27] MEDS: THIAMINE HCL 100 MG TABLET PO SCH (08:40)
[2016-12-27] MEDS: FOLIC ACID 1 MG TABLET PO SCH (08:40)
--- NOTE | 2016-12-27 09:30 | NUR ---
D/C NOTE Pt is A/O x4. V/S remain WNL. Pt denies SI/HI or hallucinations. Pt shows no s/s of acute withdrawal at this time, and is stable. has medically cleared pt for d/c . Education on Hepatitis C, smoking cessation and medication side effects provided. Pt verbalizes understanding. All pt belongings are in belonging bag, including prescriptions, including home medications. CIWA is 1. Refuses PNU vaccination. Pt is being accompanied by ENVIRONMENTAL ENGINEER at this time to be transported to rehab. All needs met.
== END 2016-12-27 09:30 | disposition other institution (70) | DRG 895 ==
LOC: SRC 22:29
PROVIDERS: ADMIT Internal Medicine; ATTEND Internal Medicine
PROC: HZ2ZZZZ Detoxification Services for Substance Abuse Treatment (ICD-10-PCS; principal; 2016-12-20)
PROC: HZ31ZZZ Individual Counseling for Substance Abuse Treatment, Behavioral (ICD-10-PCS; 2016-12-22)
PROC: HZ41ZZZ Group Counseling for Substance Abuse Treatment, Behavioral (ICD-10-PCS; 2016-12-24)
DX: F10.230 Alcohol dependence with withdrawal, uncomplicated (principal); F10.229 Alcohol dependence with intoxication, unspecified; F10.220 Alcohol dependence with intoxication, uncomplicated; K70.10 Alcoholic hepatitis without ascites; F15.10 Other stimulant abuse, uncomplicated; Y90.8 Blood alcohol level of 240 mg/100 ml or more; F41.9 Anxiety disorder, unspecified; E87.6 Hypokalemia; I15.9 Secondary hypertension, unspecified; Z82.49 Family history of ischemic heart disease and other diseases of the circulatory system; Z83.3 Family history of diabetes mellitus; Z81.1 Family history of alcohol abuse and dependence; F32.9 Major depressive disorder, single episode, unspecified; R73.9 Hyperglycemia, unspecified; R00.0 Tachycardia, unspecified
CPT/HCPCS: 36415; 70030-TC; 80307; 83690; 83735; 84443; 85025; 86580; 86592; 86705; 86803; 87340; 87806; G0480; J3411; Q0163